=== PATIENT | male | born 1980 | race Caucasian/White ===

== ENCOUNTER 2016-12-24 15:44 | Emergency (ER) | payer MEDICAID ==
[~2016-12-24] VITALS: Ht 165.1 cm; Wt 81.0 kg
[2016-12-24] MEDS ORDERED: IBUPROFEN 600MG TABLET PO ONE (18:30)
[2016-12-24 18:33] VITALS: BP 126/88
== END 2016-12-24 19:20 | disposition home or self-care (01) ==
LOC: ER 15:44
DX: S62.306A Unspecified fracture of fifth metacarpal bone, right hand, initial encounter for closed fracture (principal); W01.198A Fall on same level from slipping, tripping and stumbling with subsequent striking against other object, initial encounter; Y93.89 Activity, other specified; Y92.89 Other specified places as the place of occurrence of the external cause
CPT/HCPCS: 29125; 73130; 99284